=== PATIENT | male | born 1970 | race Caucasian/White ===

== ENCOUNTER 2023-10-14 14:45 | Inpatient (IN) | payer BC ==
[2023-10-14] MEDS ORDERED: Ondansetron PF 4 MG/2 ML Vial IVP PRN (15:30)
[2023-10-14] MEDS ORDERED: Acetaminophen 325 MG TAB PO PRN (15:30)
[2023-10-14] MEDS ORDERED: Ondansetron ODT 4 MG TAB SL PRN (15:30)
[2023-10-14] MEDS ORDERED: Morphine 2 MG/ML VIAL SLOW IVP PRN (15:35)
[2023-10-14] MEDS: Sodium Chloride 0.9% 1,000 ML IV SCH ×2 (15:45→17:10)
[2023-10-14 16:16] VITALS: BMI 25.8
[2023-10-14] MEDS ORDERED: Iopamidol 15 ML ONE (17:03)
[2023-10-14] MEDS ORDERED: fentaNYL 50 mcg/mL 1 mL Vial ONE ×4 (17:46→19:38)
[2023-10-14] MEDS ORDERED: PROPOFOL 20 ML ONE (17:53)
[2023-10-14] MEDS ORDERED: Lidocaine 1% PF 5 ML VIAL ONE (17:53)
[2023-10-14] MEDS ORDERED: Glycopyrrolate 0.2 MG/ML 5 ML SYRINGE ONE (18:29)
[2023-10-14] MEDS ORDERED: Atropine Sulfate 1 mg/10 ml Syringe ONE (18:31)
[2023-10-14] MEDS ORDERED: HYDROmorphone 2 MG/ML VIAL SLOW IVP PRN (18:44)
[2023-10-14] MEDS ORDERED: Promethazine HCl 25 MG/ML VIAL IM PRN (18:44)
[2023-10-14] MEDS ORDERED: Ondansetron HCl/PF 4 MG/2 ML Vial IVP PRN (18:44)
[2023-10-14] MEDS ORDERED: hydrALAZINE 20 MG/ML VIAL ONE (19:01)
[2023-10-14] MEDS ORDERED: Morphine 4 MG/ML VIAL ONE (20:04)
[2023-10-14] MEDS ORDERED: Labetalol HCl 100 MG/20 ML VIAL ONE (20:19)
[2023-10-14] MEDS: Heparin 5,000 UNITS/ML VIAL SC SCH (22:24)
[2023-10-14] MEDS: cloNIDine 0.1 MG TAB PO SCH (23:39)
[2023-10-15 04:31] LABS: #Basophils 0.05 10x3/uL (0.0-0.2); %Basophils 0.4 % (0.0-1.0); %Eosinophils 1.8 % (0.0-10.0); %Lymphocytes 19.3 % (21.0-51.0); %Monocytes 5.7 % (0.0-10.0); %Neutrophils 72.6 % (42.0-75.0); Hematocrit 41.2 % (42.0-52.0); Hemoglobin 14.1 g/dL (14.0-18.0); Mean Corpuscular HGB CONC 34.2 g/dL (32.0-36.0); Mean Corpuscular Hemoglobin 33.6 pg (27.0-31.0); Mean Corpuscular Volume 98.1 fL (78.0-98.0); Mean Platelet Volume 10.4 fL (7.4-10.4); Platelet Count 273 10x3/uL (130-400); RBC Distribution Width 12.7 % (11.5-14.5)
[2023-10-15 04:58] LABS: Anion Gap 12 mmol/L (10-20); BUN (Urea Nitrogen) 10 mg/dL (8.4-25.7); Calc. Creatinine Clearance 125 mL/min (70-130); Calcium 8.7 mg/dL (7.8-10.44); Carbon Dioxide 25 mmol/L (22-29); Chloride 104 mmol/L (98-107); Estimated GFR 107; Glucose 95 mg/dL (70-105); Potassium 3.5 mmol/L (3.5-5.1); Sodium 137 mmol/L (136-145)
[2023-10-15] MEDS: Morphine 4 MG/ML VIAL SLOW IVP PRN (06:37)
[2023-10-15] MEDS ORDERED: HYDROcodone/Acetaminophen 7.5/325 mg Tablet PO PRN (10:59)
[2023-10-15] MEDS: Oxybutynin 5 MG TAB PO SCH (11:17)
[2023-10-15] MEDS ORDERED: cefTRIAXone\\ROCEPHIN 2 GM in Sodium Chloride 0.9% 100 ML IVPB SCH (13:00)
[2023-10-15] MEDS: HYDROcodone/Acetaminophen 7.5/325 mg Tablet PO PRN (14:24)
[2023-10-15] MEDS: Amlodipine 5 MG TAB PO SCH (16:36)
[2023-10-15 20:52] VITALS: BP 173/89; TEMP 98.5
== END 2023-10-15 22:30 | disposition home or self-care (01) | DRG 661 ==
LOC: SJJU 14:45 → OBSVTOIN 15:35
PROVIDERS: ADMIT Family Medicine; ATTEND Internal Medicine
PROC: 0T768DZ Dilation of Right Ureter with Intraluminal Device, Via Natural or Artificial Opening Endoscopic (ICD-10-PCS; principal; 2023-10-14)
PROC: BT1D1ZZ Fluoroscopy of Right Kidney, Ureter and Bladder using Low Osmolar Contrast (ICD-10-PCS; 2023-10-14)
DX: N13.2 Hydronephrosis with renal and ureteral calculous obstruction (principal); I10 Essential (primary) hypertension; F32.A Depression, unspecified; F17.210 Nicotine dependence, cigarettes, uncomplicated; Z79.899 Other long term (current) drug therapy
CPT/HCPCS: 36415; 74420; 80048; 85025; C1769; C2617; J0360; J0461; J1644; J2270; J2704; J3010; J7050; Q9967